=== PATIENT | male | born 1955 | race Caucasian/White ===

== ENCOUNTER 2021-04-12 05:32 | Inpatient (IN) | payer MEDICARE ==
[2021-04-02 16:00] LABS: BASOPHILS % (AUTO) 0.4 % (0-1); EOSINOPHILS # (AUTO) 0.1 X10'3 (0-0.9); LYMPHOCYTES # (AUTO) 1.9 X10'3 (1.1-4.8); MEAN CORPUSCULAR HEMOGLOBIN 31.6 PG (27.0-31.0); MEAN CORPUSCULAR HGB CONC 34.3 g/dL (33.0-36.5); MEAN CORPUSCULAR VOLUME 92.1 FL (78-98); MEAN PLATELET VOLUME 8.5 FL (7.4-10.4); MONOCYTES # (AUTO) 0.8 X10'3 (0-0.9); MONOCYTES % (AUTO) 12.9 % (2-12); NEUTROPHILS # (AUTO) 3.2 X10'3 (1.8-7.7); NEUTROPHILS % (AUTO) 52.7 % (42-75); PRE OP HEMATOCRIT 39.7 % (42.0-52.0); PRE OP HEMOGLOBIN 13.6 g/dL (14.0-17.9); PRE OP PLATELET COUNT 255 X10'3 (140-440); RED BLOOD COUNT 4.31 X10'6 (4.70-6.10); RED CELL DISTRIBUTION WIDTH 13.9 % (11.5-14.5)
[2021-04-02 16:16] LABS: ALBUMIN 3.5 G/DL (3.4-5.0); ALKALINE PHOSPHATASE 94 IU/L (46-116); BLOOD UREA NITROGEN 23 MG/DL (7-18); BUN/CREATININE RATIO 19.5 (5.4-32.0); CALCIUM 8.8 MG/DL (8.5-10.1); CHLORIDE 108 MMOL/L (99-107); CREATININE 1.18 MG/DL (0.60-1.10); PRE OP ALT 41 U/L (30-65); PRE OP ANION GAP 10 (8-16); PRE OP AST 15 U/L (10-37); PRE OP BILIRUB, TOTAL 0.4 MG/DL (0.0-1.0); PRE OP GLUCOSE 146 MG/DL (70-104); PRE OP POTASSIUM 4.7 MMOL/L (3.4-5.1); PRE OP SODIUM 143 MMOL/L (135-145); TOTAL CARBON DIOXIDE 25.3 MMOL/L (24-32); eGFR 62 ML/MIN
[2021-04-02 16:24] LABS: HEMOGLOBIN A1C 6.7 % (4.5-6.2)
[2021-04-02 16:43] LABS: COLOR,URINE YELLOW (Yellow); UA COLLECTION TYPE CLN CATCH MIDSTREAM
[2021-04-02 16:44] LABS: CLARITY,URINE CLEAR (Clear)
[2021-04-02 16:45] LABS: GLUCOSE, URINE NEGATIVE (Neg); KETONES,URINE TRACE mg/dl (Neg); LEUKOCYTE ESTERASE ,URINE NEGATIVE (Neg); NITRITES, URINE NEGATIVE (Neg); OCCULT BLOOD,URINE NEGATIVE (Neg); PROTEIN,URINE TRACE mg/dl (Neg); UROBILINOGEN,URINE 0.2 E.U/dL (0.2-1.0)
[2021-04-02 17:06] LABS: SQUAMOUS EPITHELIAL CELL,UR FEW /LPF (FEW)
[2021-04-02 17:07] LABS: BACTERIA,URINE NONE SEEN /HPF (Neg); RBC,URINE NONE SEEN /HPF (0-2); WBC,URINE NONE SEEN /HPF (0-4)
[~2021-04-12] VITALS: Ht 172.7 cm; Wt 97.7 kg
[2021-04-12] VITALS (13 sets, daily range): BP systolic 114–136; BP diastolic 60–78
[~2021-04-12 05:32] MED LIST: ACET-2971 PO; AMLO2.5T2 PO; ATOR40TA PO; DIPH50LI26 PO; ETAN50DI3 SUBCUT; FLO0.4C PO; LANS30CA56 PO; LEVO25TA2 PO; METF-900 PO; RAMI5CAP65 PO; SITA25TA3 PO; SULI150T50 PO; cefazolin/dext.iso 2gm/100ml IV ONE; famotidine 20mg tablet PO ONE; ringers solution, lacted 1,000 ML IV SCH
[2021-04-12] MEDS ORDERED: bacitracin 15gm ointment TP ONE (06:54)
[2021-04-12] MEDS ORDERED: MIDAZolam 1 MG/ML 5ML VIAL ONE (07:08)
[2021-04-12] MEDS ORDERED: fentaNYL/PF 50MCG/1 ML 2ML syringe ONE ×2 (07:08→09:20)
[2021-04-12] MEDS ORDERED: ROPIVAcaine 0.5% (5mg/ml) 30ml vial ONE ×2 (07:10)
[2021-04-12] MEDS ORDERED: sevoflurane 250ml liquid IH ONE (07:12)
[2021-04-12] MEDS ORDERED: mineral oil 10ml sterile, topical TP ONE (07:41)
[2021-04-12] MEDS ORDERED: propofol inj 20 ML IV ONE (08:06)
[2021-04-12] MEDS ORDERED: vancomycin 1,000mg inj ONE (08:07)
[2021-04-12] MEDS ORDERED: ringers solution, lacted 1,000 ML IV SCH (09:05)
[2021-04-12] MEDS ORDERED: meperidine/PF 25mg/ml syringe IV PRN ×3 (09:05)
[2021-04-12] MEDS ORDERED: ROPIVAcaine 0.2%/PF PUMP/bolus 545 ML POPLITEAL SCH (09:05)
[2021-04-12] MEDS ORDERED: proCHLORperazine 10 MG/2 ml inj IV PRN (09:05)
[2021-04-12] MEDS ORDERED: ondansetron/PF 4mg/2ml inj IV PRN ×2 (09:05→11:05)
[2021-04-12] MEDS ORDERED: morphine 2 MG/ML inj. syringe IV PRN ×2 (09:05→11:05)
[2021-04-12] MEDS ORDERED: morphine 4 MG/ML inj SYRINge IV PRN (09:05)
[2021-04-12] MEDS ORDERED: ROPIVAcaine 0.2% (10 MG/5 ML) BOLUS INJECTION POPLITEAL PRN (09:05)
--- NOTE | 2021-04-12 10:25 | NUR ---
ADMITTED TO PACU FROM OR ACCOMPANIED BY ANESTHESIA. INTIAL PHYSICAL ASSESSMENT DONE AND RECORDED. REPORT RECEIVED FROM ANESTHESIA.
[2021-04-12] MEDS ORDERED: normal saline 1000ml 1,000 ML IV SCH (11:05)
[2021-04-12] MEDS ORDERED: magnesium hydroxide 30ml (MOM) UD suspension PO PRN (11:05)
[2021-04-12] MEDS ORDERED: diphenhydrAMINE 25mg capsule PO PRN ×2 (11:05→18:30)
[2021-04-12] MEDS ORDERED: HYDROcodone/acetaminophen 10/325mg tab PO PRN (11:05)
[2021-04-12] MEDS ORDERED: acetaminophen 325mg tablet PO PRN (11:05)
[2021-04-12] MEDS ORDERED: HYDROmorphone inj. 0.5 MG/0.5 ML DISP.SYRIN IV PRN (11:05)
[2021-04-12] MEDS ORDERED: mag hydrox/Alum hydrox/simeth 30ml oral suspension PO PRN (11:05)
--- NOTE | 2021-04-12 11:25 | NUR ---
PACU DISCHARGE CRITERIA MET, REPORT GIVEN TO FLOOR. DENIES PAIN OR DISCOMFORT. PT IS STABLE AND ADEQUATELY RECOVERED FROM ANESTHESIA. PT HAS STABLE AIRWAY PATENCY, RESPIRATORY FUNCTION TO INCLUDE RESPIRATORY RATE AND O2 SAT. HEART RATE, BLOOD PRESSURE STABLE AND HYDRATION ADEQUATE. MENTAL STATUS IS APPROPRIATE. PAIN AND NAUSEA CONTROLLED. REFER TO PACU SPREADSHEET FOR VITAL SIGNS.
[2021-04-12] MEDS ORDERED: MESSAGE TO PHARMACY PO ONE ×2 (11:45→18:30)
[2021-04-12] MEDS ORDERED: glucagon, human recombinant 1mg kit SUBCUT PRN ×2 (11:45→18:30)
[2021-04-12] MEDS ORDERED: dextrose ORAL solution 15 GM/59 ML bottle PO PRN ×4 (11:45→18:30)
[2021-04-12] MEDS ORDERED: dextrose 50%-water 50ml dispensing syringe IV PRN ×4 (11:45→18:30)
[2021-04-12] MEDS ORDERED: insulin Lispro (HumaLOG) vial - multi-dose SQ SCH ×2 (11:45→18:30)
--- NOTE | 2021-04-12 18:25 | NUR ---
Problems reprioritized. Patient report given to amilcar RN with cherelle RN, questions answered & plan of care reviewed with .
[2021-04-12] MEDS ORDERED: magnesium 4gm in 100ml NS 100 ML IV PRN (18:30)
[2021-04-12] MEDS ORDERED: non-formulary drug (Acetaminophen (Tylenol Arthritis) 1 TAB) PO PRN (18:30)
[2021-04-12] MEDS ORDERED: potassium Cl 40MEQ/1/2NS 520ml 520 ML IV PRN (18:30)
[2021-04-12] MEDS ORDERED: potassium Cl 20 mEq SR tablet PO PRN ×2 (18:30)
[2021-04-12] MEDS ORDERED: magnesium Cl slow-release 64mg tablet PO PRN (18:30)
--- NOTE | 2021-04-12 18:55 | NUR ---
Problems reprioritized. Patient report given, questions answered & plan of care reviewed with Colette MCNAMARA.
--- NOTE | 2021-04-12 19:02 | NUR ---
Student documentation: I have reviewed and agree with all interventions, assessments performed and documented by Cadence vo [facility] student.
[2021-04-12] MEDS: K and/or MAG REPLACEMENT MC SCH (20:00)
[2021-04-12] MEDS: sulindac 150mg tablet PO SCH (20:00)
[2021-04-12] MEDS ORDERED: insulin glargine (Lantus) pen - multi-dose SQ SCH ×2 (21:00)
[2021-04-12] MEDS ORDERED: atorvastatin 20mg tablet PO SCH (21:00)
[2021-04-12] MEDS: docusate sod 100mg capsule PO SCH (21:36)
[2021-04-13] VITALS: BP 141/77
--- NOTE | 2021-04-13 06:30 | NUR ---
Problems reprioritized. Patient report given, questions answered & plan of care reviewed with Bonnie MCNAMARA. Addendum: 04/13/21 at 0630 by Camila Cortez RN Amended: Links added.
[2021-04-13 06:41] LABS: BASOPHILS % (AUTO) 0.3 % (0-1); EOSINOPHILS % (AUTO) 0.1 % (0-6); HEMATOCRIT 35.9 % (42.0-52.0); HEMOGLOBIN 12.4 g/dl (14.0-17.9); LYMPHOCYTES # (AUTO) 1.2 X10'3 (1.1-4.8); LYMPHOCYTES % (AUTO) 10.2 % (21-51); MEAN CORPUSCULAR HEMOGLOBIN 32.1 PG (27.0-31.0); MEAN CORPUSCULAR HGB CONC 34.6 g/dL (33.0-36.5); MEAN CORPUSCULAR VOLUME 92.8 FL (78-98); MEAN PLATELET VOLUME 8.8 FL (7.4-10.4); MONOCYTES # (AUTO) 1.2 X10'3 (0-0.9); NEUTROPHILS # (AUTO) 9.2 X10'3 (1.8-7.7); NEUTROPHILS % (AUTO) 79.4 % (42-75); PLATELET COUNT 234 X10'3 (140-440); RED BLOOD COUNT 3.87 X10'6 (4.70-6.10); RED CELL DISTRIBUTION WIDTH 13.6 % (11.5-14.5); WHITE BLOOD COUNT 11.6 X10'3 (4.5-11.0)
[2021-04-13 07:00] VITALS: BP 147/75
[2021-04-13] MEDS ORDERED: levoTHYROXINE 175mcg tablet PO SCH (07:00)
[2021-04-13 07:02] LABS: ALANINE AMINOTRANSFERASE 33 U/L (12-78); ALBUMIN 3.2 G/DL (3.4-5.0); ALKALINE PHOSPHATASE 78 IU/L (46-116); ANION GAP 11 (8-16); ASPARTATE AMINO TRANSFERASE 17 U/L (10-37); BILIRUBIN,TOTAL 0.8 MG/DL (0.1-1.0); BLOOD UREA NITROGEN 19 MG/DL (7-18); BUN/CREATININE RATIO 17.3 (5.4-32.0); CALCIUM 8.4 MG/DL (8.5-10.1); CHLORIDE 109 MMOL/L (99-107); GLUCOSE 138 MG/DL (70-104); MAGNESIUM 1.6 MG/DL (1.5-2.4); PHOSPHORUS 3.3 MG/DL (2.3-4.5); POTASSIUM 4.1 MMOL/L (3.5-5.1); SODIUM 144 MMOL/L (135-145); TOTAL CARBON DIOXIDE 24.5 MMOL/L (24-32); TOTAL PROTEIN 6.4 G/DL (6.4-8.2); eGFR 67 ML/MIN
[2021-04-13] MEDS ORDERED: amLODIPine 5mg tablet PO SCH (08:00)
[2021-04-13] MEDS ORDERED: lansoprazole 15mg solutab PO SCH (08:00)
[2021-04-13] MEDS: sulindac 150mg tablet PO SCH (08:00)
[2021-04-13] MEDS ORDERED: heparin, porcine 5000 units/ml vial SQ SCH (08:00)
[2021-04-13] MEDS ORDERED: lisinopril 20mg tablet PO SCH (08:00)
[2021-04-13] MEDS: docusate sod 100mg capsule PO SCH (08:00)
[2021-04-13] MEDS: K and/or MAG REPLACEMENT MC SCH (08:00)
[2021-04-13] MEDS ORDERED: tamsulosin 0.4mg capsule PO SCH (08:00)
--- NOTE | 2021-04-13 08:38 | NUR ---
Paged Physical therapist to remind about seeing this patient today
--- NOTE | 2021-04-13 10:22 | NUR ---
Patient said PT has not seen him yet. Charge nurse Lenka said she will page the PT. Patient stated that it will take 4 hours to get home requesting if he can be discharge today
--- NOTE | 2021-04-13 10:31 | NUR ---
Per Dr. Perez patient is okay to be discharge today and that patient will go home with the OnQ pump. PT at bedside now getting ready to see the patient. Dr. Perez asked me to contact Dr. Gill regarding discharge order.
--- NOTE | 2021-04-13 10:34 | NUR ---
Paged Dr. Gill PAGER ID: [phone] MESSAGE: Surgical Shane RN [id number]. RE: Krish Lara. Per Dr. Perez patient is okay to be discharge today and that patient will go home with the OnQ pump. Dr. Perez asked me to contact you regarding discharge order
[2021-04-13] MEDS ORDERED: ASPI-611 PO (10:51)
[2021-04-13 11:00] VITALS: BP 159/72
--- NOTE | 2021-04-13 13:18 | NUR ---
Discharge instructions given to patient, patient verbalized understanding of all instructions made including how to use onQ pump, how to pull it out (written instruction for OnQ removal provided) and when to call the MD or when to go to ER. Patient was given drug-drug interaction list for his medication Scopolamine patch that he normally used for motion sickness. Instructed patient to ensure he has all his belongings with him before leaving the hospital. Peripheral IV catheter removed, tip intact.
[2021-04-18] MEDS ORDERED: ETANERCEPT 50 MG PO SCH (08:00)
== END 2021-04-13 13:18 | disposition home or self-care (01) | DRG 469 ==
LOC: PAS IN 05:32 → SUR 3N 11:40
PROVIDERS: ADMIT Podiatrist Foot & Ankle Surgery; ATTEND Podiatrist Foot & Ankle Surgery
PROC: 3E0T3BZ Introduction of Anesthetic Agent into Peripheral Nerves and Plexi, Percutaneous Approach (ICD-10-PCS; 2021-04-12)
PROC: 0SRG0J9 Replacement of Left Ankle Joint with Synthetic Substitute, Cemented, Open Approach (ICD-10-PCS; principal; 2021-04-12 07:12)
DX: M19.072 Primary osteoarthritis, left ankle and foot (principal); E03.9 Hypothyroidism, unspecified; E11.9 Type 2 diabetes mellitus without complications; E78.5 Hyperlipidemia, unspecified; I10 Essential (primary) hypertension; K21.9 Gastro-esophageal reflux disease without esophagitis; M65.872 Other synovitis and tenosynovitis, left ankle and foot; N40.0 Benign prostatic hyperplasia without lower urinary tract symptoms; Q66.72 Congenital pes cavus, left foot; Z79.899 Other long term (current) drug therapy
CPT/HCPCS: 36415; 73600; 76000; 80053; 81001; 82948; 83036; 83735; 84100; 84443; 85025; 87081; 97161; 97530; A4618; A6223; A6449; A7000; C1713; C1776; G0378; J1644; J1815; J2250; J2704; J2795; J3010; J3370; J7120; U0003; U0005